=== PATIENT | male | born 1985 | race Caucasian/White ===

== ENCOUNTER 2016-09-18 09:47 | Emergency (ER) | payer SELFPAY ==
[2016-09-18 09:55] VITALS: RESP 18; BMI 24.8
[2016-09-18] MEDS ORDERED: Sodium Chloride 0.9% 1,000 ML IV STA (10:28)
--- NOTE | 2016-09-18 10:34 | ED PDOC ---
Arrival/HPI - General Chief Complaint: Abdominal Pain Time Seen by Provider: 09/18/16 10:26 Historian: Patient - History of Present Illness Narrative History of Present Illness (Text): 09/18/16 10:29 Patient complains of sudden onset of squeezing like constant pain to the left side of the abdomen radiating to the left groin which started one hour prior to arrival, associated with nausea. Patient reports a history of constipation, states that he goes to the bathroom normally every day, this morning had a bowel movement, however only a small amount with no improvement of his pain. Otherwise: (-) vomiting, (-) diarrhea, (-) fever, (-) melena, (-) hematochezia, (-) prior symptoms in the past, (-) history of kidney stones, (-) any history of prior abdominal conditions, (-) urinary symptoms. Has no history of prior abdominal surgery. Past Medical History - Provider Review Nursing Documentation Reviewed: Yes - Psychiatric Hx Substance Use: No Family/Social History - Physician Review Nursing Documentation Reviewed: Yes Family/Social History: No Known Family HX Smoking Status: Never Smoked Hx Alcohol Use: No Hx Substance Use: No Allergies/Home Meds Allergies/Adverse Reactions: Allergies No Known Allergies Allergy (Verified 09/18/16 09:55) Review of Systems - Review of Systems Constitutional: Normal. absent: Fatigue, Weight Change, Fevers Respiratory: Normal. absent: SOB, Cough, Sputum Cardiovascular: Normal. absent: Chest Pain, Palpitations, Edema Gastrointestinal: Normal, Abdominal Pain, Constipation (Chronic constipation). absent: Stool Changes, Vomiting, Appetite Changes Genitourinary Male: Normal. absent: Dysuria, Frequency, Hematuria Musculoskeletal: Normal. absent: Arthralgias, Back Pain, Neck Pain Skin: Normal. absent: Rash, Pruritis, Skin Lesions Physical Exam - Physical Exam Narrative Physical Exam (Text): 09/18/16 10:32 GENERAL APPEARANCE: Patient is awake, alert, oriented x 3, in moderate painful distress. Patient unable to lay in bed comfortably. SKIN: Warm, dry; (-) cyanosis. EYES: (-) conjunctival pallor, (-) scleral icterus. ENMT: Mucous membranes moist. NECK: (-) tenderness, (-) stiffness, (-) lymphadenopathy. CHEST AND RESPIRATORY: (-) rales, (-) rhonchi, (-) wheezes; breath sounds equal bilaterally. HEART AND CARDIOVASCULAR: (-) irregularity; (-) murmur, (-) gallop. ABDOMEN AND GI: (-) distention. Bowel sounds active; (+) mild L sided abdominal tenderness, (-) guarding, (-) rebound, (-) palpable masses, (+) mild L sided CVA tenderness. : Normal uncircumcised male, (-) tenderness, (-) edema. Male tech, present during the entire exam. RECTAL : (-) tenderness, (-) mass, (-) stool impaction. Stool brown in color, guiac (-). Male tech route service representative, was present during the entire exam. EXTREMITIES: (-) deformity, (-) edema, (+) distal pulses. NEURO AND PSYCH: Mental status as above; (-) focal findings. Vital Signs Temp Pulse Resp BP Pulse Ox 09/18/16 14:50 98.6 F 78 18 132/78 98 09/18/16 13:06 70 18 127/83 100 09/18/16 09:52 98.1 F 76 18 127/92 H 99 Medical Decision Making ED Course and Treatment: 09/18/16 10:34 31-year-old male presents with sudden onset of left-sided abdominal pain. Rule out renal colic, consider constipation versus diverticulitis. Plan: -- Labs -- IV fluids -- Urinalysis -- Zofran / Toradol -- Reassess and disposition -- CT AP 09/18/16 11:30 On reevaluation, patient is resting comfortably in bed, reports improvement of pain. CBC and CMP results reviewed. CT results still pending. Patient so far did not provide a urine sample. 09/18/16 12:17 CT abdomen and pelvis without IV contrast shows +obstructing 5 mm proximal left ureteral calculus with minimal left hydronephrosis. Two small nonobstructing right renal calculi, 2-3 mm. On reevaluation, patient reports improvement of pain. Still unable to give a urine sample. Glaser catheter inserted and 400 ml of bloody urine was noted in the bag. Urine sample sent for urinalysis and urine culture. Call placed to urology emergency communications officer Dr. Cody Melo. Case discussed with Dr. Melo, recommends removal of the Glaser and to have the patient attempted to urinate. States that as long as the patient can urinate on his own and his pain is controlled that he can follow-up at his office without fail. Patient states that he is visiting here from [place], and that he has health insurance back home, states that he is only visiting for the next 5 more days and plans to return home where he has a PMD. CT and diagnostic results discussed with the patient in great detail, notified of plan for outpatient follow-up with Dr. Melo which patient agrees to. Patient given a dose of Percocet and Flomax by mouth. Patient states he fully agrees with and understands discharge instructions. States that he agrees with the plan and disposition. Verbalized and repeated discharge instructions and plan. I have given the patient opportunity to ask any additional questions. Follow up with Dr. Melo in 1-2 days without fail. Advised to take medication as prescribed. Return to the emergency room at any time for any new or worsening symptoms. - Lab Interpretations Lab Results: 09/18/16 10:43 09/18/16 10:43 Lab Results 09/18/16 12:47: Urine Color Yellow, Urine Appearance Sl cloudy, Urine pH 6.5, Ur Specific [place] 1.025, Urine Protein Trace H, Urine Glucose (UA) Negative, Urine Ketones Negative, Urine Blood Large H, Urine Nitrate Negative, Urine Bilirubin Negative, Urine Urobilinogen 0.2, Ur Leukocyte Esterase Negative, Urine RBC Tntc, Urine WBC 0 - 2, Urine Bacteria Small 09/18/16 10:43: Sodium 141, Potassium 4.0, Chloride 102, Carbon Dioxide 28, Anion Gap 15, BUN 16, Creatinine 0.9, Est GFR ( Amer) > 60, Est GFR (Non- Af Amer) > 60, Random Glucose 116 H, Calcium 9.6, Total Bilirubin 0.5, AST 55, ALT 98 H, Alkaline Phosphatase 75, Total Protein 8.3, Albumin 4.7, Globulin 3.5 , Albumin/Globulin Ratio 1.3, Lipase 123 09/18/16 10:43: WBC 8.9, RBC 5.02, Hgb 15.1, Hct 43.1, MCV 85.9, MCH 30.1, MCHC 35.0, RDW 13.0, Plt Count 227, MPV 11.2 H, Gran % 48.5 L, Lymph % (Auto) 41.4 H , [place] % (Auto) 7.6 H, Eos % (Auto) 1.6, Baso % (Auto) 0.9, Gran # 4.33, Lymph # 3.7 H, [place] # 0.7 H, Eos # 0.1, Baso # 0.08 I have reviewed the lab results: Yes Interpretation: All labs normal - RAD Interpretation Narrative RAD Interpretations (Text): 09/18/16 12:15 CT A/P w/o contrast: FINDINGS: LOWER THORAX: Unremarkable. LIVER: Diffusely diminished attenuation consistent with mild fatty infiltration. No mass. No biliary ductal dilatation. GALLBLADDER AND BILE DUCTS: Unremarkable. PANCREAS: Unremarkable. No gross lesion or ductal dilatation. SPLEEN: Unremarkable. ADRENALS: Unremarkable. No mass. KIDNEYS AND URETERS: Two very small nonobstructing right renal calculi, 2-3 mm. No left renal calculus. Obstructing 5 mm calculus proximal left ureter. Minimal left hydronephrosis. No mark hydroureter. No right hydroureter or hydronephrosis. No perinephric fluid. VASCULATURE: Unremarkable. No aortic aneurysm. BOWEL: Unremarkable. No obstruction. No gross mural thickening. APPENDIX: Not identified. No secondary findings to suggest acute appendicitis. PERITONEUM: Unremarkable. No free fluid. No free air. LYMPH NODES: Unremarkable. No enlarged lymph nodes. BLADDER: Unremarkable. REPRODUCTIVE: Normal prostate BONES: No acute fracture. OTHER FINDINGS: None. IMPRESSION: Obstructing 5 mm proximal left ureteral calculus with minimal left hydronephrosis. Two small nonobstructing right renal calculi, 2-3 mm. Fatty liver. Radiology Orders: 09/18/16 10:27 ABD & PELVIS W/O PO OR IV CONT [CT] Stat - Medication Orders Current Medication Orders: Discontinued Medications Sodium Chloride (Sodium Chloride 0.9%) 1,000 mls @ 1,000 mls/hr IV .Q1H STA Stop: 09/18/16 11:27 Last Admin: 09/18/16 10:41 Dose: 1,000 mls/hr Ketorolac Tromethamine (Toradol) 30 mg IVP STAT STA Stop: 09/18/16 10:28 Last Admin: 09/18/16 10:34 Dose: 30 mg Re-Assess: KATINA Pain Assessment Document 09/18/16 11:34 LIA (Rec: 09/18/16 14:34 EWO [id number]) Pain Reassessment Is this a pain reassessment? Yes Sleep Is patient sleeping during reassessment? No Presence of Pain Presence of Pain No Ondansetron HCl (Zofran Inj) 4 mg IVP STAT STA Stop: 09/18/16 10:28 Last Admin: 09/18/16 10:34 Dose: 4 mg Oxycodone/Acetaminophen (Percocet 5/325 Mg Tab) 1 tab PO STAT STA Stop: 09/18/16 14:32 Last Admin: 09/18/16 14:47 Dose: 1 tab Tamsulosin HCl (Flomax) 0.4 mg PO STAT STA Stop: 09/18/16 14:32 Last Admin: 09/18/16 14:47 Dose: 0.4 mg - PA / REGIONAL PROJECT MANAGER / Resident Statement MD/DO has reviewed & agrees with the documentation as recorded. Disposition/Present on Arrival - Present on Arrival Any Indicators Present on Arrival: No History of DVT/PE: No History of Uncontrolled Diabetes: No Urinary Catheter: No History of Decub. Ulcer: No History Surgical Site Infection Following: None - Disposition Have Diagnosis and Disposition been Completed?: Yes Diagnosis: Renal colic on left side, Urinary retention Disposition: HOME/ ROUTINE Disposition Time: 14:00 Patient Plan: Discharge Condition: GOOD Discharge Instructions (ExitCare): Urinary Retention in Men (ED), Renal Colic ( ED) Print Language: MALAY Additional Instructions: Thank you for letting us take care of you today. You were treated for renal colic, urinary retention. The emergency medical care you received today was directed at your acute symptoms. If you were prescribed any medication, please fill it and take as directed. It may take several days for your symptoms to resolve. Return to the Emergency Department if your symptoms worsen, do not improve, or if you have any other problems. Please contact Dr. Cody Melo in 2 days for re-evaluation and follow up. Bring any paperwork you were given at discharge with you along with any medications you are taking to your follow up visit. Our treatment cannot replace ongoing medical care by a primary care provider (PCP) outside of the emergency department. Thank you for allowing the [facility] [employer] team to be part of your care today. Today's lab test revealed : CBC: WBC 8.9 Hgb 15.1 Hct 43.1 Plt 227 CMP: Na 141 K 4 Cl 102 Co2 28 BUN 16 Creat 0.9 Glucose 116 UA: (+) large blood, nitrate (-), leuks (-) CT A/P w/o contrast: Obstructing 5 mm proximal left ureteral calculus with minimal left hydronephrosis. Two small nonobstructing right renal calculi, 2-3 mm. Fatty liver. Prescriptions: Naproxen 500 mg PO BID #30 tab oxyCODONE/Acetaminophen [Percocet 5/325 mg Tab] 1 ea PO QID #16 tab Tamsulosin [Flomax] 0.4 mg PO DAILY #10 cap Referrals: Frank Melo MD [Staff Provider] - Follow up with primary
[2016-09-18 10:44] LABS: ADD MANUAL DIFF? NO
[2016-09-18 10:47] LABS: BASO # 0.08 K/mm3 (0.0-2.0); BASO % 0.9 % (0.0-3.0); EOS # 0.1 (0.0-0.7); EOS % 1.6 % (1.5-5.0); GRAN # 4.33 (1.4-6.5); GRAN % 48.5 % (50.0-68.0); HEMATOCRIT 43.1 % (42.0-52.0); LYMPH # 3.7 (1.2-3.4); LYMPH % 41.4 % (22.0-35.0); MEAN CELL VOLUME 85.9 fL (80.0-105.0); MEAN CORPUSCULAR HEMOGLOBIN 30.1 pg (25.0-35.0); MEAN PLATELET VOLUME 11.2 fl (7.0-11.0); MONO # 0.7 (0.1-0.6); MONO % 7.6 % (1.0-6.0); PLATELET COUNT 227 10^3/uL (120.0-450.0); WHITE BLOOD COUNT 8.9 10^3/ul (4.5-11.0)
[2016-09-18 11:21] LABS: ALB/GLOB RATIO 1.3 (1.1-1.8); ALKALINE PHOSPHATASE 75 U/L (38-133); ALT/SGPT 98 U/L (7-56); AST/SGOT 55 U/L (15-59); BILIRUBIN,TOTAL 0.5 mg/dL (0.2-1.3); BLOOD UREA NITROGEN 16 mg/dL (7-21); CALCIUM 9.6 mg/dL (8.4-10.5); CARBON DIOXIDE 28 mmol/L (21-33); CHLORIDE 102 mmol/L (98-107); GFR AFRICAN-AMERICAN > 60; GLUCOSE,RANDOM 116 mg/dL (70-110); LIPASE 123 U/L (23-300); SODIUM 141 mmol/L (132-148); TOTAL PROTEIN 8.3 g/dL (5.8-8.3)
--- NOTE | 2016-09-18 11:43 | CT ---
PROCEDURE: CT Abdomen and Pelvis without intravenous contrast HISTORY: L sided abd pain, r/o renal stone COMPARISON: None. TECHNIQUE: Without contrast.. Contrast Dose: 0 Radiation dose: Total exam DLP = 248.35 mGy-cm. This CT exam was performed using one or more of the following dose reduction techniques: Automated exposure control, adjustment of the mA and/or kV according to patient size, and/or use of iterative reconstruction technique. FINDINGS: LOWER THORAX: Unremarkable. LIVER: Diffusely diminished attenuation consistent with mild fatty infiltration. No mass. No biliary ductal dilatation. GALLBLADDER AND BILE DUCTS: Unremarkable. PANCREAS: Unremarkable. No gross lesion or ductal dilatation. SPLEEN: Unremarkable. ADRENALS: Unremarkable. No mass. KIDNEYS AND URETERS: Two very small nonobstructing right renal calculi, 2-3 mm. No left renal calculus. Obstructing 5 mm calculus proximal left ureter. Minimal left hydronephrosis. No mark hydroureter. No right hydroureter or hydronephrosis. No perinephric fluid. VASCULATURE: Unremarkable. No aortic aneurysm. BOWEL: Unremarkable. No obstruction. No gross mural thickening. APPENDIX: Not identified. No secondary findings to suggest acute appendicitis. PERITONEUM: Unremarkable. No free fluid. No free air. LYMPH NODES: Unremarkable. No enlarged lymph nodes. BLADDER: Unremarkable. REPRODUCTIVE: Normal prostate BONES: No acute fracture. OTHER FINDINGS: None. IMPRESSION: Obstructing 5 mm proximal left ureteral calculus with minimal left hydronephrosis. Two small nonobstructing right renal calculi, 2-3 mm. Fatty liver.
[2016-09-18 12:59] LABS: PH,URINE 6.5 (4.7-8.0); URINE BILIRUBIN NEGATIVE (NEGATIVE); URINE BLOOD LARGE (NEGATIVE); URINE GLUCOSE (UA) NEGATIVE (NEGATIVE); URINE KETONE NEGATIVE (NEGATIVE); URINE LEUKOCYTE ESTERASE NEGATIVE Leu/uL (NEGATIVE); URINE PROTEIN TRACE mg/dL (<30 mg/dL); URINE UROBILINOGEN 0.2 E.U./dL (<1 E.U./dL)
[2016-09-18 13:01] LABS: URINE APPEARANCE SL CLOUDY (CLEAR); URINE COLOR YELLOW (YELLOW)
[2016-09-18 13:27] LABS: URINE BACTERIA SMALL (NEG); URINE RBC TNTC /hpf (0-2); URINE WBC 0 - 2 /hpf (0-6)
[2016-09-18] MEDS ORDERED: Oxycodone/Acetaminophen 5/325 mg Tab PO STA (14:31)
[2016-09-18 14:55] VITALS: BP 132/78; PULSE 78; TEMP 98.6; O2SAT 98
== END 2016-09-18 14:55 | disposition home or self-care (01) ==
LOC: ED 09:47
DX: N20.0 Calculus of kidney (principal); R33.9 Retention of urine, unspecified
CPT/HCPCS: 74176; 80053; 81001; 83690; 85025; 87086; 96361; 96374; 96375; 99285; J1885; J2405; J7040